=== PATIENT | male | born 1985 | race Caucasian/White ===

== ENCOUNTER 2018-08-18 03:41 | Emergency (ER) | payer SELFPAY ==
[~2018-08-18] VITALS: Ht 175.3 cm; Wt 104.3 kg
[2018-08-18 03:57] VITALS: BP_SYST 184
[2018-08-18] MEDS ORDERED: ONDANSETRON HCL 4 MG/2 ML VIAL IVP ONE (04:45)
[2018-08-18] MEDS ORDERED: NACL 0.9% 1,000 ML IV ONE (04:45)
[2018-08-18] MEDS ORDERED: PANTOPRAZOLE SODIUM 40 MG/VIAL (PROTONIX) IVP ONE (04:45)
[2018-08-18 05:30] LABS: HEMATOCRIT 51.5 % (36-54); HEMOGLOBIN 17.9 g/dL (14.0-18.0); MEAN CORPUSCULAR HEMOGLOBIN 30 pg (27-31); MEAN CORPUSCULAR HGB CONC 35 % (32-36); MEAN CORPUSCULAR VOLUME 85 fL (79.0-98.0); PLATELET COUNT (AUTO) 281 K/uL (130-430); RED BLOOD CELL COUNT(AUTO) 6.03 MIL/uL (4.2-6.2); WHITE BLOOD COUNT (AUTO) 8.1 K/uL (4.8-10.8)
[2018-08-18 05:37] LABS: CALCIUM 9.6 mg/dL (8.4-11.0); CREATININE 0.88 mg/dL (0.55-1.30); POTASSIUM 3.4 mmol/L (3.5-5.1)
[2018-08-18 05:42] LABS: ALBUMIN 5.1 g/dL (3.4-4.8); TOTAL BILIRUBIN 0.9 mg/dL (0.0-1.0)
[2018-08-18 06:07] LABS: ATYPICAL LYMPHOCYTES % 0 % (0-0); BAND % (MANUAL) 0 % (0-6); BASOPHILS % (MANUAL) 0 % (0-2); EOSINOPHILS % (MANUAL) 0 % (0-7); LYMPHOCYTES % (MANUAL) 22 % (20-46); MONOCYTES % (MANUAL) 8 % (0-11)
[2018-08-18 06:58] VITALS: BP_SYST 169
== END 2018-08-18 06:58 | disposition home or self-care (01) ==
LOC: SED 03:41
DX: R11.10 Vomiting, unspecified (principal); R53.1 Weakness
CPT/HCPCS: 36415; 80053; 83690; 85007; 85027; 96361; 96374; 96375; 99283; C9113; J2405; J7030